=== PATIENT | male | born 1940 | race African-American/Black ===

== ENCOUNTER 2017-03-05 04:08 | Emergency (ER) | payer MEDICARE ==
--- NOTE | 2017-03-05 06:00 | PHYS DOC ---
Adult General Chief Complaint Chief Complaint: CPR/FULL ARREST HPI HPI Patient is a 76 year old -[place] male who presents with cardiac arrest. According EMS he got up this morning to use a bathroom and had witnessed arrest by the who started CPR. EMS was called and they found him in V. tach they gave him 2 shocks and did lidocaine that he went to a PDA rhythm and then finally after 30 minutes had return of pulses. They lost pulses and continue CPR and he received partially 5 rounds of epi prior to being transported. Upon arrival here he was intubated with an LMA and chest compressions were in route. He received 2 A of bicarbonate, multiple rounds of epi and after approximately 20 minutes we had return of pulses. He started to bradycardia down and half milligram of atropine was administered in addition to half a milligram of epinephrine. Pulses was lost again and time was called at 4:35 AM. His was confirmed with ultrasound his heart and Dopplers femoral artery. Please see the CODE BLUE sheet for the full amount of medicines and times. Review of Systems Review of Systems unable to obtain secondary to patient's current condition Physical Exam Physical Exam Constitutional: Well developed, well nourished, in acute distress. [] HENT: Normocephalic, atraumatic, bilateral external ears normal, oropharynx moist, no oral exudates, nose normal. [] Eyes: PERRLA, EOMI, conjunctiva normal, no discharge. [] Neck: supple, no stridor. [] Cardiovascular: CPR in progress[] Lungs & Thorax: Bilateral breath sounds with bagging[] Abdomen: soft, no masses, no pulsatile masses. [] Skin: Warm, dry, no erythema, no rash. [] Back: No signs of injury appreciated Extremities: no cyanosis, no clubbing, no edema. [] Neurologic: Unresponsive EKG EKG [] Radiology/Procedures Radiology/Procedures [] Impressions: Cardiac arrest Course & Med Decision Making Course & Med Decision Making Pertinent Labs and Imaging studies reviewed. (See chart for details) Patient is a 76 year old -[place] male who presents with cardiac arrest. According EMS he got up this morning to use a bathroom and had witnessed arrest by the who started CPR. EMS was called and they found him in V. tach they gave him 2 shocks and did lidocaine that he went to a PDA rhythm and then finally after 30 minutes had return of pulses. They lost pulses and continue CPR and he received approximately 5 rounds of epi prior to being transported. Upon arrival here he was intubated with an LMA and chest compressions were in route. He received 2 Amps of bicarbonate, multiple rounds of epi , 1 from agonal to the PEA into a V. fib rhythm and received 2 shocks and after approximately 20 minutes we had return of pulses. He started to bradycardia down and half milligram of atropine was administered in addition to half a milligram of epinephrine. Pulses was lost again and time was called at 4:35 AM. His was confirmed with ultrasound his heart and Dopplers femoral artery. Please see the CODE BLUE sheet for the full amount of medicines and times. Patient did have an ICD Vest that was brought in with him. I did get a print out from the [employer] that has Vest which is difficult for me to interpret however does look like he wanted V. fib arrest based on the rhythm strips that I saw. Spoke with Dr. Ted Jackson, who is his primary care physician who did not feel comfortable signing the certificate. I spoke with the corner who did not feel this was autopsy case and will was okay with the body being released the home and will sign the certificate. I spent approximately 60 minutes working and engaged directly in the patient care providing critical care evaluation this includes but not limited to time spent engaged in work directly related to the individual patients care. I spent time at the bedside, reviewing test results, discussing the case with staff, documenting the medical record and time spent with EMS discussing specific treatment issues when the patient presented and during his evaluation. This includes any discussion and updates with family members and/or patient. Dragon Disclaimer Dragon Disclaimer This electronic medical record was generated, in whole or in part, using a voice recognition dictation system. Departure Departure Impression: Primary Impression: Cardiac arrest Disposition: 20 Condition: Referrals: NO PCP (PCP) SHAWNA BALBUENA MD Mar 05, 2017 06:00
[2017-03-05] MEDS ORDERED: EPINEPHrine VIAL 30 MG/30 ML VIAL ONE (09:00)
[2017-03-05] MEDS ORDERED: ATROPINE 0.5 MG/5 ML DISP.SYRIN. ONE (09:00)
[2017-03-05] MEDS ORDERED: AMIODARONE 150 MG/3 ML VIAL ONE (09:00)
[2017-03-05] MEDS ORDERED: EPINEPHrine SYRINGE 1 MG/10 ML SYRINGE ONE (09:00)
[2017-03-05] MEDS ORDERED: DOPamine 400MG/250ML PREMIX 400 MG/250 ML BAG IV ONE (09:00)
[2017-03-05] MEDS ORDERED: SODIUM BICARB ADULT 8.4% 50 MEQ/50 ML DISP.SYRIN. ONE (09:00)
== END 2017-03-05 07:05 | disposition expired ==
LOC: ER 04:08
DX: I46.9 Cardiac arrest, cause unspecified (principal); I49.01 Ventricular fibrillation; I47.2 Ventricular tachycardia
CPT/HCPCS: 31500; 92950; 99291; J0171; J0282; J0461; J1265